=== PATIENT | female | born 1985 | race Caucasian/White ===

== ENCOUNTER → 2017-10-21 14:00 | Outpatient (CLI) | payer OTHER, SELFPAY ==
[2017-10-28 15:29] LABS: HPV APTIMA, High Risk Negative (Negative)
== END ==
PROVIDERS: Visit Provider Nurse Practitioner Women's Health
DX: Z12.4 Encounter for screening for malignant neoplasm of cervix (principal)
CPT/HCPCS: 88175; G0145

== ENCOUNTER → 2018-02-18 08:38 | Outpatient (CLI) | payer OTHER, SELFPAY ==
[2018-02-18 10:24] LABS: Vitamin B12 362 pg/mL (211-911)
[2018-02-18 10:27] LABS: Cholesterol 131 mg/dL (200); Ferritin 26 ng/mL (8-252); Follicle Stimulating Hormone 1.5 mIU/mL; High Density Lipoprotein 52 mg/dL; Luteinizing Hormone 1.7 mIU/mL; Thyroid Stim Hormone (TSH) 1.01 uIU/mL (0.358-3.74)
[2018-02-19 08:23] LABS: DHEA Sulfate 279.1 ug/dL (84.8-378.0)
== END ==
PROVIDERS: Family Provider Family Medicine; PCP Family Medicine; Visit Provider Family Medicine
DX: E28.2 Polycystic ovarian syndrome (principal); Z78.9 Other specified health status
CPT/HCPCS: 36415; 82465; 82533; 82607; 82627; 82728; 83001; 83002; 83718; 84403; 84443; 82626

== ENCOUNTER → 2018-07-29 10:26 | Outpatient (CLI) | payer OTHER, SELFPAY ==
[2018-07-29 12:35] LABS: Absolute Neutrophil Count 4.6 X10^3/uL (2.0-7.7); Basophil# 0.02 X10^3/uL; Basophil% 0.3 % (0-1); Eosinophil# 0.03 X10^3/uL; Eosinophils% 0.4 % (0-5); Hematocrit 42.5 % (37-47); Hemoglobin 14.2 g/dl (12.0-15.0); Lymphocyte % 27.3 % (19-41); Mean Corp Hgb Conc 33.4 g/gl (32-36); Mean Corpuscular Hgb 29.4 pg (27.0-32.0); Mean Platelet Vol. 9.9 fl (6.2-12.0); Monocyte# 0.43 X10^3/uL; Monocyte% 6.2 % (0-10); Neutrophil # 4.57 X10^3/uL (2.7-7.7); Neutrophil % 65.7 % (47-70); POSITIVE COUNT NO; POSITIVE DIFFERENTIAL NO; POSITIVE MORPHOLOGY NO; Platelet Count 296 K/mm3 (150-450); RBC Distribution Width CV 12.4 % (11.6-14.6); Red Blood Count 4.83 M/mm3 (4.2-5.4)
[2018-07-29 12:52] LABS: ALB/GLOB Ratio 1.6 RATIO (0.9-2.4); AST(SGOT) 17 U/L (15-37); Alanine Aminotransfer ALT/SGPT 15 U/L (13-56); Albumin, Serum 4.7 g/dL (3.2-5.0); Alkaline Phosphatase 73 U/L (45-117); Anion Gap 5 (5-15); BUN 7 mg/dL (7-18); BUN/Creat Ratio 9.9 RATIO (10-20); CRP < 2.90 mg/L (0.0-3.0); Calcium,Total 9.2 mg/dL (8.5-10.1); Chloride 105 mmol/L (98-107); Creatinine, Serum 0.71 mg/dL (0.55-1.02); EST Glomerular Filtration Rate 102 mL/min (>60); Est Glom Filt Rate - Afr Amer 123 mL/min (>60); Globulin 2.9 g/dL (2.2-4.2); Glucose 85 mg/dL (74-106); Protein, Total 7.6 g/dL (6.4-8.2); Sodium Level 141 mmol/L (136-145)
== END ==
PROVIDERS: Family Provider Family Medicine; PCP Family Medicine; Referring Provider Family Medicine; Visit Provider Family Medicine
DX: R10.13 Epigastric pain (principal)
CPT/HCPCS: 36415; 80053; 85025; 86140